=== PATIENT | female | born 1975 | race Caucasian/White ===

== ENCOUNTER 2023-08-15 10:16 | Outpatient (CLI) | payer BC, SELFPAY ==
--- NOTE | ~2023-08-15 | US_ITS ---
EXAMINATION: US pelvic complete DATE: 08/15/2023 10:43 INDICATION: Excessive and frequent menstruation. TECHNIQUE: Multiple transabdominal sonographic images of the pelvis were obtained. COMPARISON: None. FINDINGS: The uterus measures 9.2 x 4.5 x 6.2 cm. There is no free fluid in the pelvis. The endometrial complex measures 13 mm in thickness. The right ovary measures 3.1 x 1.8 x 2.7 cm. The left ovary measures 2. 8 x 2.1 x 2.3 cm. IMPRESSION: 1. Normal pelvis. Reviewed, dictated and finalized at location A. IMPRESSION: 1. Normal pelvis.
== END 2023-08-15 10:17 ==
PROVIDERS: PCP Nurse Practitioner Women's Health; Visit Provider Nurse Practitioner Women's Health
DX: N92.0 Excessive and frequent menstruation with regular cycle (principal)
CPT/HCPCS: 76856

== ENCOUNTER 2023-10-19 01:25 | Day surgery (SDC) | payer BC, SELFPAY ==
[2023-10-09 13:49] VITALS: BMI 28.3
--- NOTE | 2023-10-09 13:49 | PC.NURSE ---
Report to the Outpatient Waiting Room, entrance under the green pavilion located off [facility], at time _0745_ on date _[id number]_. Planned Procedure Time: _0945_. Time changes happen often and if your time is changed the preop area will call you the afternoon before. - You and your visitor will be asked to self-screen and do not enter if you have any COVID symptoms. - A mask is optional within the hospital at this time. Patients may have clear liquids (water, carbonated beverages, clear teas, apple juice) until 3 hours prior to surgery with a maximum of 20 ounces. - No food from midnight until time of surgery Take the following medications with a SIP of water the morning of surgery: ____None DO NOT STOP ANY OF YOUR OTHER PRESCRIPTION MEDICATIONS PRIOR TO SURGERY ?EXCEPT THE FOLLOWING Medications to discontinue per physician Vitamins Date to take last [id number] Please no make-up, nail citizen of [place], hairspray, perfume, deodorant, or body powder the day of surgery. No jewelry (including any body piercings) or valuables the day of surgery, leave them at home. Please take a shower or bath the night before, or the morning of, surgery with an antibacterial soap. Wear comfortable, loose fitting clothing. - Jewelry must be removed prior to entering the operating room. Rings and piercings that are not removed may be cut off. - The hospital will not accept responsibility for valuables. - Please leave all valuables, including medications, at home the day of surgery. If you are going home after surgery, a licensed special education bus driver must drive you home. - NO public transportation without another adult if you receive anesthesia. - We recommend that an adult stay with you for 24 hours following discharge. - We also recommend that you do not drive, make important decision, drink alcoholic beverages, or take any drugs that were not prescribed by your health care provider for at least 24 hours after your discharge time. Follow any additional instructions given to you from your surgeon. If you or anyone in your household have experienced Covid symptoms in the past week, please notify your surgeon or the nurse liaison at the phone number below for possible testing. Telephone instructions given to __Jill and asked if any additional questions and then verbalized understanding. Patient advised to call surgeon office or pre surgery nurse liaison [phone] if any additional questions.
--- NOTE | 2023-10-19 07:19 | WPDHPUPDATE1 ---
History and Physical Update Update Date/Time: 10/19/23 07:19 History and Physical has been reviewed, including an updated exam of the patient. There are NO changes in the patient's condition. Risks, benefits, and alternatives have been discussed and questions answered. Patient agrees to proceed with procedure.
--- NOTE | 2023-10-19 07:19 | PM.HPGS ---
History of Present Illness History of Present Illness Consent: Risks, benefits, and alternatives have been discussed and questions answered. Patient agrees to proceed with procedure. Chief complaint: menorrhagia Narrative: Yanique Garland is a 48 year old female with very heavy cycles. Attempt to proceed in the office was not successful as the patient's cervix was not able to be visualized due to very abnormal location with the cervix being very posterior with a ridge of scar tissue blocking the visualization. It was recommended to undergo D&C hysteroscopy in the OR for further evaluation. Patient voices understanding and agrees to proceed. Risks infection, bleeding perforation and possible pathology are discussed. Patient agrees to proceed. 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 Social History Social History Smoking status: Never smoker Alcohol intake: current Living arrangements: with family Spiritual care concerns: No Meds Home Medications and Allergies Home Medications Medication Instructions Recorded Confirmed Type cetirizine 10 mg tablet (Zyrtec) 10 mg PO DAILY 10/09/23 10/09/23 History cyanocobalamin (vitamin B-12) 250 250 mcg PO DAILY 10/09/23 10/09/23 History mcg tablet (Vitamin B-12) multivitamin 1 tablet PO DAILY 10/09/23 10/09/23 History Allergies Allergy/AdvReac Type Severity Reaction Status Date / Time No Known Allergies Allergy Verified 10/09/23 13:38 Exam Const: General: healthy appearing and alert Orientation/consciousness: patient oriented x3 Resp: Effort & Inspection: normal respiratory effort : External Female Exam: normal external appearance Speculum Exam - Vagina: normal vaginal discharge and other ( ridge of scar tissue posterior blocking the view of the cervix) Speculum Exam - Cervix: Other cervical findings present ( cervix is very posterior) Bimanual exam- vagina & uterus: uterine size normal and consistency normal Bimanual Exam- Adnexa, other: normal adnexae and No adnexal tenderness Neuro: General: patient oriented x3 Assessment and Plan Assessment and plan (1) Menorrhagia: Code(s): N92.0 - Excessive and frequent menstruation with regular cycle Status: Acute Assessment and Plan: plan to proceed with D&C hysteroscopy
[2023-10-19] MEDS: LACTATED RINGERS 1,000 ML 30 ML IV CONT (08:15)
[2023-10-19] MEDS: ACETAMINOPHEN 500 MG TABLET 1000 MG PO (08:20)
--- NOTE | 2023-10-19 08:22 | P.PNAN_ITS ---
Anes - Initial Pre Proc Eval Procedure: Operation Date: 10/19/23 09:45 Proposed Procedures p Hysteroscopy Dilation and Curettage - Mayelin Blake MD Date/Time: 10/19/23 08:22 Surgeon: Mayelin Blake MD Pre Op Diagnosis: menorrhagia Patient Data Age: 48 Gender: F Height: 1.68 m Weight: 79.5 kg Allergies Allergy/AdvReac Type Severity Reaction Status Date / Time No Known Allergies Allergy Verified 10/19/23 08:22 Home Medications Medication Instructions Recorded Confirmed Type cetirizine 10 mg tablet (Zyrtec) 10 mg PO DAILY 10/09/23 10/09/23 History cyanocobalamin (vitamin B-12) 250 250 mcg PO DAILY 10/09/23 10/09/23 History mcg tablet (Vitamin B-12) multivitamin 1 tablet PO DAILY 10/09/23 10/09/23 History Patient hx anesthesia problems: none Family hx anesthesia problems: none Results Review: All pre-operative results and documents have been reviewed as part of the pre- operative evaluation. 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 Social History Social History Smoking status: Never smoker Alcohol intake: current Living arrangements: with family Spiritual care concerns: No Anes - Eval Final PreProcedure Day of Procedure 10/19/23 08:22 Patient weight: overweight Heart: regular rate and rhythm Lungs: clear to auscultation Airway: Mallampati scale class II Neurological: alert and oriented Last oral intake: >/= 8 hours ASA classification: II Emergent: no Anesthetic plan: proceed Anesthesia type and monitoring: general GIVS and standard monitoring Results Review: All pre-operative results and documents have been reviewed as part of the pre- operative evaluation. Informed Consent: The patient's anesthetic plan and its attendant risks and benefits were discussed with the patient/family/POA. Questions were solicited and answers provided to the satisfaction of the patient/family/POA.
[2023-10-19 08:30] VITALS: BP 117/70; PULSE 78; RESP 14; TEMP 36.8; O2SAT 100
--- NOTE | 2023-10-19 08:55 | W.PM.PROC2 ---
Procedure Note - Detailed Date of Procedure 10/19/23 Pre-op Diagnosis menorrhagia Post-op Diagnosis Same Procedure Performed D&C hysteroscopy with resection of polyp Surgeon Mayelin Blake MD Anesthesia MAC Findings The cervix is very disfigured, posterior, and stenotic. There is a posterior vaginal scar blocking the cervical opening. Uterus sounds to 9cm and has a large anterior polyp. Remainder the endometrium appears grossly normal. Description of Procedure The patient is taken to the operating room and placed under anesthesia in the dorsal lithotomy position. She was prepped and draped in usual sterile fashion. The speculum was placed in the vagina and the cervix barely visible posteriorly. The anterior lip of the cervix was grasped with a tenaculum. Uterus is attempted to be sounded and this is not successful. The small dilator was utilized and unable to enter the cervix. The os Finders were used and the cervix is able to be entered. The uterus is then able to be sounded to 9cm. The diagnostic hysteroscope was placed. The small Aveta resection device is placed and under direct visualization the polyp was removed in its entirety. The hysteroscope was removed and the sharp OO curette is used to curette the endometrium until a good uterine cry was noted in all areas. All instruments are removed. Sponge, needle, and instrument counts are correct per the OR staff. Patient was awakened from anesthesia and taken to recovery in stable condition. Estimated Blood Loss 5 Drains No Packing No Pathology Yes ( Endometrial shavings and curettings) Complications No immediate complications Condition Stable Disposition PACU
[2023-10-19 08:57] VITALS: BP 97/60; PULSE 81; RESP 16; O2SAT 98
[2023-10-19 09:25] VITALS: BP 103/70; PULSE 81; RESP 18; O2SAT 98
[2023-10-19 09:40] VITALS: BP 105/74; PULSE 68; RESP 18
== END 2023-10-19 09:52 | disposition home or self-care (01) ==
PROVIDERS: PCP Nurse Practitioner Women's Health; Visit Provider Obstetrics & Gynecology Gynecology
PROC: 0U5B8ZZ Destruction of Endometrium, Via Natural or Artificial Opening Endoscopic (ICD-10-PCS; CPT 58563; principal; 2023-10-19 09:45)
DX: N92.0 Excessive and frequent menstruation with regular cycle (principal); N84.0 Polyp of corpus uteri; Z90.5 Acquired absence of kidney
CPT/HCPCS: 58558; 88305; A9270; J1100; J2250; J2405; J2704; J3010; J7120

== ENCOUNTER 2024-09-19 02:32 | Day surgery (SDC) | payer BC, SELFPAY ==
[2024-09-13 11:56] VITALS: BMI 27.3
--- NOTE | 2024-09-13 11:56 | PC.NURSE ---
Report to the Outpatient Waiting Room, entrance under the green pavilion located off [facility], at time _1100_ on date _[id number]_. Planned Procedure Time: _1pm_.? Time changes happen often and if your time is changed the preop area will call you the afternoon before. - You and your visitor will be asked to self-screen and do not enter if you have any COVID symptoms. Please call surgeon if you need to reschedule. - A mask is optional within the hospital at this time. Patients may have clear liquids (water, carbonated beverages, clear teas, apple juice) until 3 hours prior to surgery with a maximum of 20 ounces. - No food from midnight until time of surgery and no smoking, or chewing tobacco (or any form of nicotine). No chewing gum, candy or mints. Take only the following medications with a SIP of water on the morning of surgery: ____None___ DO NOT STOP ANY OF YOUR OTHER PRESCRIPTION MEDICATIONS PRIOR TO SURGERY EXCEPT THE FOLLOWING Hold all vitamins and supplements for 3 days per anesthesiologist. Medications to discontinue per physician Date to take last orpl___[id number]___ Please no make-up, nail viet[place], hairspray, perfume, deodorant, or body powder the day of surgery.? No jewelry (including any body piercings) or valuables the day of surgery, leave them at home.? Please take a shower or bath the night before, or the morning of, surgery with an antibacterial soap.? Wear comfortable, loose fitting clothing.? - Jewelry must be removed prior to entering the operating room.? Rings and piercings that are not removed may be cut off. - The hospital will not accept responsibility for valuables.? - Please leave all valuables, including medications, at home the day of surgery. If you are going home after surgery, a licensed miniature train driver must drive you home.? - NO public transportation without another adult if you receive anesthesia. - We recommend that an adult stay with you for 24 hours following discharge. - We also recommend that you do not drive, make important decision, drink alcoholic beverages, or take any drugs that were not prescribed by your health care provider for at least 24 hours after your discharge time. Follow any additional instructions given to you from your surgeon. Telephone instructions given to __Jill___and asked if any additional questions and then verbalized understanding. Patient advised to call surgeon office or pre surgery nurse liaison [phone] if any additional questions.
--- OUTSIDE RECORDS SUMMARY | 2024-09-19 02:35 | XMS_ITS | Clinical Summary ---
Author Organization [facility] Health Address [address] [address] Care Team Providers Care Lead Clinical Research Coordinator Name Role Phone Unavailable Primary Care Provider Unavailabl e Social History Tobacco Use Types Packs/Day Years Used Date Smoking Tobacco: Never Assessed Comments Unknown Sex and Gender Information Value Date Recorded Sex Assigned at Not on file Legal Sex Female 6:40 PM PST Gender Identity Not on file Sexual Orientation Not on file Plan of Treatment Not on file
--- OUTSIDE RECORDS SUMMARY | 2024-09-19 02:35 | XMS_ITS | Encounter Summary ---
Author Organization [facility] Health Address [address] [place] [address] Care Team Providers Care Shingles Roofer Name Role Phone Unavailable Primary Care Provider Unavailabl e Prior Encounters Date Type Department Care Team Description 05/02/2019 Converted 13x Documents [facility] [address], [address] [place] [address] <No scans attached> 05/02/2019 Converted 13x Documents [facility] [address], [address] [place] [address] <No scans attached> 05/02/2019 Converted CPS Chart Documents [facility] [address], [address] [place] [address] <No scans attached> Plan of Treatment Not on file Procedures Procedure Name Priority Date/Time Associated Diagnosis Comments PERIODIC ORAL EVALUATION - ESTABLISHED PATIENT Routine 05/08/2010 2:00 AM DISASTER RECOVERY COORDINATOR PROPHYLAXIS - ADULT Routine 05/08/2010 2 :00 AM DISASTER RECOVERY COORDINATOR PROPHYLAXIS - ADULT Routine 10/30/2009 2 :00 AM CDT 31 CAROLYN ONLAY [place]EL[place] 3 ALONSO Routine 10/09/2009 2:00 AM CDT 18 CAROLYN ONLAY [place] 3 ALONSO Routine 10/09/2009 2:00 AM CDT CHLORHEXIDINE Routine 10/09/2009 2:00 AM CDT 1 FM IRR W/GROSS SCALE Routine 0 2:00 AM CDT DEBRIDEMENT TO ENABLE A COMPREHENSIVE PERIODONTAL EVAL AND DIAGNOSIS ON A SUBSEQUENT VISIT Routine 10/09/2009 2:00 AM CDT COMPREHENSIVE ORAL EVALUATION - NEW OR ESTABLISHED PATIENT Routine 10/04/2009 2:00 AM CDT PANORAMIC RADIOGRAPHIC IMAGE Routine 10/04/2009 2:00 AM CDT INTRAORAL - COMPREHENSIVE SERIES OF RADIOGRAPHIC IMAGES Routine 10/04/2009 2:00 AM CDT INTRAORAL PHOTO Routine 10/04/2009 2:00 AM CDT INTRAORAL PHOTO Routine 10/04/2009 2:00 AM CDT INTRAORAL PHOTO Routine 10/04/2009 2:00 AM CDT INTRAORAL PHOTO Routine 10/04/2009 2:00 AM CDT 31 O AMALGAM 1 SURFACE Routine 0 2:00 AM CDT 18 O AMALGAM 1 SURFACE Routine 0 2:00 AM CDT 15 O AMALGAM 1 SURFACE Routine 0 2:00 AM CDT Visit Diagnoses Not on file
--- NOTE | 2024-09-19 08:30 | WPDHPUPDATE1 ---
History and Physical Update Update Date/Time: 09/19/24 08:30 History and Physical has been reviewed, including an updated exam of the patient. There are NO changes in the patient's condition. Risks, benefits, and alternatives have been discussed and questions answered. Patient agrees to proceed with procedure.
--- NOTE | 2024-09-19 08:30 | PM.HPGS ---
History of Present Illness History of Present Illness Consent: Risks, benefits, and alternatives have been discussed and questions answered. Patient agrees to proceed with procedure. Chief complaint: menorrhagia Narrative: Yanique Garland is a 49 year old female with heavy and crampy periods. Patient voices that her cycles are heavy changing about every 15minutes. Periods have also become irregular. It was recommended to undergo D&C hysteroscopy in the operating room due to her very difficult exam. Patient with recent October of 2023 D&C hysteroscopy with resection of a very large polyp. Risks of infection, bleeding, and perforation are reviewed. Due to her difficulties and she was given Cytotec to take prior to surgery. Patient voices understanding and agrees to proceed. 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 Social History Social History Smoking status: Never smoker Alcohol intake: current Living arrangements: with family Spiritual care concerns: No Meds Home Medications and Allergies Home Medications ?Medication ?Instructions ?Recorded ?Confirmed ?Type cetirizine 10 mg tablet (Zyrtec) 10 mg PO DAILY 10/09/23 09/13/24 History multivitamin 1 tablet PO DAILY 10/09/23 09/13/24 History vitamin D3 1,250 mcg (50,000 1 cap PO DAILY 09/13/24 09/13/24 History unit)-vitamin K2 200 mcg capsule (Decara K) Allergies Allergy/AdvReac Type Severity Reaction Status Date / Time No Known Allergies Allergy Verified 09/13/24 11:48 Exam Const: General: healthy appearing and alert Orientation/consciousness: patient oriented x3 Resp: Effort & Inspection: normal respiratory effort Auscultation: clear to auscultation bilaterally Cardio: Rate: regular rate Rhythm: regular rhythm GI: GI Palp: Yes Soft to palpation, No Tenderness to palpation present (GI) and No Palpable mass present : External Female Exam: normal external appearance Speculum Exam - Vagina: normal vaginal discharge and other (Posterior vaginal scar blocking the full cervical opening) Speculum Exam - Cervix: Other cervical findings present (Flush with the vagina, disfigured, stenotic, very posterior) Bimanual exam- vagina & uterus: uterine size normal and consistency normal Bimanual Exam- Adnexa, other: normal adnexae and No adnexal tenderness Neuro: General: patient oriented x3 Assessment and Plan Assessment and plan (1) Menorrhagia: Code(s): N92.0 - Excessive and frequent menstruation with regular cycle Status: Acute Assessment and Plan: Plan to proceed with D&C hysteroscopy. Due to abnormal cervical exam, patient took Cytotec for the past week.
[2024-09-19 10:30] VITALS: BP 121/73; PULSE 77; RESP 16; TEMP 36.8; O2SAT 100
[2024-09-19] MEDS: ACETAMINOPHEN 500 MG TABLET 1000 MG PO (10:30)
[2024-09-19] MEDS: LACTATED RINGERS 1,000 ML 30 ML IV CONT (10:30)
--- NOTE | 2024-09-19 10:53 | P.PNAN_ITS ---
Anes - Initial Pre Proc Eval Procedure: Operation Date: 09/19/24 13:00 Proposed Procedures p Hysteroscopy, Dilation and Curettage - Mayelin Blake MD Date/Time: 09/19/24 10:53 Surgeon: Mayelin Blake MD Pre Op Diagnosis: menorrhagia Patient Data Age: 49 Gender: F Height: 1.68 m Weight: 77.6 kg Last Vital Signs Temp 36.8 C 09/19/24 10:30 Pulse 77 09/19/24 10:30 Resp 16 09/19/24 10:30 BP 121/73 09/19/24 10:30 Pulse Ox 100 09/19/24 10:30 O2 Del Method Room Air 09/19/24 10:30 Allergies Allergy/AdvReac Type Severity Reaction Status Date / Time No Known Allergies Allergy Verified 09/13/24 11:48 Home Medications ?Medication ?Instructions ?Recorded ?Confirmed ?Type cetirizine 10 mg tablet (Zyrtec) 10 mg PO DAILY 10/09/23 09/13/24 History multivitamin 1 tablet PO DAILY 10/09/23 09/13/24 History vitamin D3 1,250 mcg (50,000 1 cap PO DAILY 09/13/24 09/13/24 History unit)-vitamin K2 200 mcg capsule (Decara K) Patient hx anesthesia problems: none Family hx anesthesia problems: none Results Review: All pre-operative results and documents have been reviewed as part of the pre-op erative evaluation. PMFSH Past Medical History Medical History (normal spontaneous vaginal delivery) x3 Surgical History Surgical History History of hysteroscopy October 2023 large polyp History of nephrectomy donated 2020 to brother Social History Social History Smoking status: Never smoker Alcohol intake: current Living arrangements: with family Spiritual care concerns: No Anes - Eval Final PreProcedure Day of Procedure 09/19/24 10:53 Patient weight: overweight Heart: regular rate and rhythm Lungs: clear to auscultation Airway: Mallampati scale class II Neurological: alert and oriented Last oral intake: >/= 8 hours ASA classification: II Emergent: no Anesthetic plan: proceed Anesthesia type and monitoring: general GIVS and standard monitoring Results Review: All pre-operative results and documents have been reviewed as part of the pre- operative evaluation. Informed Consent: The patient's anesthetic plan and its attendant risks and benefits were discussed with the patient/family/POA. Questions were solicited and answers provided to the satisfaction of the patient/family/POA.
[2024-09-19 10:54] LABS: BEDSIDEPREGUCG Negative (Negative)
--- NOTE | 2024-09-19 11:10 | S_PTH ---
PATIENT: Yanique Garland LOC: [facility] U#:[id number] AGE/SX: 49/F ROOM: RE09/19/[address]: Mayelin Blake MD : 1975 BED: DIS: 09/19/2024 SPEC #: [id number] RECD: 09/19/24 13:09 STATUS: SUMEET REQ #: [id number] CASIMIRO: 09/19/24 11:[address]: Mayelin Blake DEPT: [facility] Surgical RECD BY: Abiola Russell ENTERED: 09/19/24 13:09 SP TYPE: Surgical OTHR DR: Cory Chandler, Tissues: A - Endometrial Curettings Procedures: Hematoxylin and Eosin Stain Gross and Microscopic Level 4
[2024-09-19 11:20] VITALS: BP 99/66; PULSE 86; RESP 14; O2SAT 96
--- NOTE | 2024-09-19 11:21 | W.PM.PROC2 ---
Procedure Note - Detailed Date of Procedure 09/19/24 Pre-op Diagnosis menorrhagia Post-op Diagnosis Same Procedure Performed D&C hysteroscopy Surgeon Mayelin Blake MD Anesthesia MAC Findings Uterus sounds to 9cm and appears grossly normal. Cervix was pulled to the left and posterior with a ridge of scar tissue in front of it. Cervix is flush with the vagina. Description of Procedure The patient was taken to the operating room and placed under anesthesia in the dorsal lithotomy position. Patient was prepped and draped in usual sterile fashion. The bivalve speculum was placed in the vagina and the cervix is grasped on the anterior lip with a tenaculum. Uterus is sounded to 9cm. The diagnostic hysteroscope was placed and with no abnormalities noted it is removed. The sharp curette was used to curette the endometrium until a good uterine cry was noted in all areas. All instruments are removed. Sponge, needle, and instrument counts are correct per the OR staff. The patient was awakened from anesthesia and taken to recovery in stable condition. Estimated Blood Loss 5 Drains No Packing No Pathology Yes (Endometrial curettings) Complications No immediate complications Condition Stable Disposition PACU
[2024-09-19 11:50] VITALS: BP 92/62; PULSE 92; RESP 16; O2SAT 98
[2024-09-19 12:15] VITALS: BP 111/92; PULSE 74; RESP 20
== END 2024-09-19 12:27 | disposition home or self-care (01) ==
PROVIDERS: PCP Family Medicine; Visit Provider Obstetrics & Gynecology Gynecology
PROC: 0U5B8ZZ Destruction of Endometrium, Via Natural or Artificial Opening Endoscopic (ICD-10-PCS; CPT 58563; principal; 2024-09-19 13:00)
DX: N92.0 Excessive and frequent menstruation with regular cycle (principal)
CPT/HCPCS: 58558; 88305; A9270; J2003; J2250; J2405; J2704; J3010; J7120

== ENCOUNTER 2024-10-03 01:17 | Day surgery (SDC) | payer BC, SELFPAY ==
--- NOTE | 2024-09-29 10:12 | PC.NURSE ---
Report to the Outpatient Waiting Room, entrance under the green pavilion located off [facility], at time _0945_ on date _[id number]_. Planned Procedure Time: _1145_.? Time changes happen often and if your time is changed the preop area will call you the afternoon before. - You and your visitor will be asked to self-screen and do not enter if you have any COVID symptoms. Please call surgeon if you need to reschedule. - A mask is optional within the hospital at this time. Patients may have clear liquids (water, carbonated beverages, clear teas, apple juice) until 3 hours prior to surgery with a maximum of 20 ounces. - No food from midnight until time of surgery and no smoking, or chewing tobacco (or any form of nicotine). No chewing gum, candy or mints. Take only the following medications with a SIP of water on the morning of surgery: ____None____ DO NOT STOP ANY OF YOUR OTHER PRESCRIPTION MEDICATIONS PRIOR TO SURGERY EXCEPT THE FOLLOWING Hold all vitamins and supplements for 3 days per anesthesiologist. Stop now. Medications to discontinue per physician Date to take last dose Please no make-up, nail mauritanian, hairspray, perfume, deodorant, or body powder the day of surgery.? No jewelry (including any body piercings) or valuables the day of surgery, leave them at home.? Please take a shower or bath the night before, or the morning of, surgery with an antibacterial soap.? Wear comfortable, loose fitting clothing.? - Jewelry must be removed prior to entering the operating room.? Rings and piercings that are not removed may be cut off. - The hospital will not accept responsibility for valuables.? - Please leave all valuables, including medications, at home the day of surgery. If you are going home after surgery, a licensed driver lifter of sanitation truck must drive you home.? - NO public transportation without another adult if you receive anesthesia. - We recommend that an adult stay with you for 24 hours following discharge. - We also recommend that you do not drive, make important decision, drink alcoholic beverages, or take any drugs that were not prescribed by your health care provider for at least 24 hours after your discharge time. Follow any additional instructions given to you from your surgeon. Telephone instructions given to __Jill___and asked if any additional questions and then verbalized understanding. Patient advised to call surgeon office or pre surgery nurse liaison [phone] if any additional questions.
[2024-09-29 10:40] VITALS: BMI 27.6
--- NOTE | 2024-10-03 08:14 | WPDHPUPDATE1 ---
History and Physical Update Update Date/Time: 10/03/24 08:14 History and Physical has been reviewed, including an updated exam of the patient. There are NO changes in the patient's condition. Risks, benefits, and alternatives have been discussed and questions answered. Patient agrees to proceed with procedure.
--- NOTE | 2024-10-03 08:14 | PM.HPGS ---
History of Present Illness History of Present Illness Consent: Risks, benefits, and alternatives have been discussed and questions answered. Patient agrees to proceed with procedure. Chief complaint: Menorrhagia Narrative: Yanique Garland is a 49 year old female status post D&C hysteroscopy for menorrhagia who presents for Rody endometrial ablation. Risks of infection, bleeding, perforation and device failure are reviewed. The success of the procedure was also reviewed. Patient voices understanding and agrees to proceed. Review of Systems Review of Systems: not repeated day of surgery; patient states no changes in status PMFSH Past Medical History Medical History (normal spontaneous vaginal delivery) x3 Surgical History Surgical History (Updated 10/03/24 @ 08:16 by Mayelin Blake MD) History of hysteroscopy October 2023 large polyp, 10/05-benign History of nephrectomy donated 2020 to brother Social History Social History Smoking status: Never smoker Alcohol intake: current Living arrangements: with family Spiritual care concerns: No Meds Home Medications and Allergies Home Medications ?Medication ?Instructions ?Recorded ?Confirmed ?Type cetirizine 10 mg tablet (Zyrtec) 10 mg PO DAILY 10/09/23 09/29/24 History multivitamin 1 tablet PO DAILY 10/09/23 09/29/24 History vitamin D3 1,250 mcg (50,000 1 cap PO DAILY 09/13/24 09/29/24 History unit)-vitamin K2 200 mcg capsule (Decara K) Allergies Allergy/AdvReac Type Severity Reaction Status Date / Time No Known Allergies Allergy Verified 09/29/24 10:34 Exam Const: General: healthy appearing and alert Orientation/consciousness: patient oriented x3 Resp: Effort & Inspection: normal respiratory effort : External Female Exam: normal external appearance Speculum Exam - Vagina: normal appearance of the vagina and normal vaginal discharge Speculum Exam - Cervix: normal appearance of the cervix Bimanual exam- vagina & uterus: uterine size normal and consistency normal Bimanual Exam- Adnexa, other: normal adnexae and No adnexal tenderness Neuro: General: patient oriented x3 Assessment and Plan Assessment and plan (1) Menorrhagia: Code(s): N92.0 - Excessive and frequent menstruation with regular cycle Status: Acute Assessment and Plan: Plan to proceed with Rody endometrial ablation
[2024-10-03 10:20] VITALS: BP 111/77; PULSE 76; RESP 14; TEMP 36.7; O2SAT 100
[2024-10-03] MEDS: ACETAMINOPHEN 500 MG TABLET 1000 MG PO (10:20)
[2024-10-03] MEDS: LACTATED RINGERS 1,000 ML 30 ML IV CONT (10:20)
--- NOTE | 2024-10-03 10:23 | P.PNAN_ITS ---
Anes - Initial Pre Proc Eval Procedure: Operation Date: 10/03/24 11:45 Proposed Procedures p Hysteroscopy with Rody Endometrial Ablation - Mayelin Blake MD Date/Time: 10/03/24 10:23 Surgeon: Mayelin Blake MD Pre Op Diagnosis: Menorrhagia Patient Data Age: 49 Gender: F Height: 1.68 m Weight: 77.6 kg Allergies Allergy/AdvReac Type Severity Reaction Status Date / Time No Known Allergies Allergy Verified 09/29/24 10:34 Home Medications ?Medication ?Instructions ?Recorded ?Confirmed ?Type cetirizine 10 mg tablet (Zyrtec) 10 mg PO DAILY 10/09/23 09/29/24 History multivitamin 1 tablet PO DAILY 10/09/23 09/29/24 History vitamin D3 1,250 mcg (50,000 1 cap PO DAILY 09/13/24 09/29/24 History unit)-vitamin K2 200 mcg capsule (Decara K) Patient hx anesthesia problems: none Family hx anesthesia problems: none Results Review: All pre-operative results and documents have been reviewed as part of the pre- operative evaluation. PMFSH Past Medical History Medical History (normal spontaneous vaginal delivery) x3 Surgical History Surgical History (Updated 10/03/24 @ 08:16 by Mayelin Blake MD) History of hysteroscopy October 2023 large polyp, 10/05-benign History of nephrectomy donated 2020 to brother Social History Social History Smoking status: Never smoker Alcohol intake: current Living arrangements: with family Spiritual care concerns: No Anes - Eval Final PreProcedure Day of Procedure 10/03/24 10:23 Patient weight: overweight Heart: regular rate and rhythm Lungs: clear to auscultation Airway: Mallampati scale class II Neurological: alert and oriented Last oral intake: >/= 8 hours ASA classification: II Emergent: no Anesthetic plan: proceed Anesthesia type and monitoring: general GIVS and standard monitoring Results Review: All pre-operative results and documents have been reviewed as part of the pre- operative evaluation. Informed Consent: The patient's anesthetic plan and its attendant risks and benefits were discussed with the patient/family/POA. Questions were solicited and answers provided to the satisfaction of the patient/family/POA.
[2024-10-03 10:40] LABS: BEDSIDEPREGUCG Negative (Negative)
[2024-10-03] MEDS: LIDOCAINE 1% LOCAL INJ 10 ML VIAL INFILTRATE (11:07)
[2024-10-03] MEDS: KETOROLAC 30 MG/ML VIAL (*BKC) IV PUSH (11:19)
[2024-10-03 11:25] VITALS: BP 99/59; PULSE 77; RESP 14; O2SAT 100
--- NOTE | 2024-10-03 11:43 | W.PM.PROC2 ---
Procedure Note - Detailed Date of Procedure 10/03/24 Pre-op Diagnosis Menorrhagia Post-op Diagnosis Same Procedure Performed Hysteroscopy with Rody endometrial ablation Surgeon Mayelin Blake MD Anesthesia MAC and Local (1% lidocaine) Findings Uterus sounds to 9cm and appears grossly normal. Cervix is very distorted and the uterus is anteverted. Description of Procedure Patient is taken to the operating room and placed under anesthesia in the dorsal lithotomy position. She was prepped and draped the usual sterile fashion. [place] speculum was placed in the vagina and the cervix is grasped on the anterior lip with a tenaculum. The cervix was noted to be very distorted. Uterus was attempted to be sounded and I could not enter the os. The cervix was injected in each quadrant with 1% lidocaine using a total of 10cc. The Hegar dilators were used to enter the cervix and dilated to a 5 Hegar. The uterus was then sounded to 9cm. The diagnostic hysteroscope was placed. The hysteroscope was removed and the cervix is further dilated to an 8 Hegar. The Rody device is opened and placed. The device is set at 5cm due to the long cervix. Cavity assessment passed on the 1st attempt and a treatment cycle lasted the full 2minutes. The Rody device was then removed and the hysteroscope replaced. Good ablation effect is noted. All instruments are removed. Sponge, needle, and instrument counts are correct per the OR staff. The patient was awakened from anesthesia and taken to recovery in stable condition. Estimated Blood Loss 5 Drains No Packing No Pathology None sent Complications No immediate complications Condition Stable Disposition PACU
[2024-10-03 11:55] VITALS: BP 100/64; PULSE 69; RESP 14; O2SAT 99
[2024-10-03 12:25] VITALS: BP 117/77; PULSE 66; RESP 14
[2024-10-03] MEDS: oxyCODONE HCL (*CRX) 5 MG TAB IR PO (12:26)
--- NOTE | 2024-10-03 12:29 | SUR.PHASEII ---
HYSTEROSCOPY D/C INSTRUCTIONS GIVEN AND REVIEWED WITH PATIENT, NO HYSTERECTOMY INSTRUCTIONS.
[2024-10-03 12:55] VITALS: BP 117/80; PULSE 64; RESP 14
== END 2024-10-03 12:56 | disposition home or self-care (01) ==
PROVIDERS: PCP Family Medicine; Visit Provider Obstetrics & Gynecology Gynecology
PROC: 0U5B8ZZ Destruction of Endometrium, Via Natural or Artificial Opening Endoscopic (ICD-10-PCS; CPT 58563; principal; 2024-10-03 11:45)
DX: N92.0 Excessive and frequent menstruation with regular cycle (principal)
CPT/HCPCS: 58563; A9270; J1100; J1885; J2003; J2250; J2405; J2704; J3010; J7120